=== PATIENT | male | born 1970 | race Caucasian/White ===

== ENCOUNTER → 2017-06-08 | Outpatient (CLI) | payer MEDICARE ==
[2016-05-03 15:14] VITALS: BP 146/90
[~2017-06-08] MED LIST: ACYC800T PO; HYDR-971 PO; PRED50TA PO
--- NOTE | 2017-06-08 16:33 | RAD ---
3 view right shoulder study History: Right shoulder pain for years. Findings: No acute fracture or dislocation or osteolytic process is seen. There is mild primary degenerative osteoarthritis and spurring of the AC joint. There is lateral downsloping of the acromial process. These findings may impinge the acromial humeral space. There are chronic cystic changes of the lateral aspect of the humeral head which may be secondary to chronic acromial humeral space impingement which may result in rotator cuff disease. IMPRESSION: No acute osseous abnormality is seen. See discussion above.
== END | disposition home or self-care (01) ==
LOC: RAD 11:48
PROVIDERS: ATTEND Physician Assistant
DX: M19.011 Primary osteoarthritis, right shoulder (principal); M85.611 Other cyst of bone, right shoulder
CPT/HCPCS: 73030

== ENCOUNTER → 2018-05-25 | Outpatient (CLI) | payer MEDICARE ==
[2016-05-03 15:14] VITALS: BP 146/90
--- NOTE | 2018-05-25 11:56 | RAD ---
Chest, 2 views, 05/25/2018: HISTORY: Preop evaluation for brain surgery The heart size is normal. No pulmonary infiltrate is seen. There is no evidence of pleural fluid. Moderate hypertrophic spurring is present in the spine. IMPRESSION: No acute cardiopulmonary abnormality is detected. Electronically signed by: Dhruv Zurita MD (05/25/2018 11:52 AM) [facility]
== END | disposition home or self-care (01) ==
LOC: PMG 10:13
PROVIDERS: ATTEND Physician Assistant
DX: Z01.818 Encounter for other preprocedural examination (principal)
CPT/HCPCS: 71046

== ENCOUNTER → 2021-03-31 | Outpatient (CLI) | payer MEDICARE ==
[2016-05-03 15:14] VITALS: BP 146/90
[~2021-03-31] MED LIST changes: -ACYC800T PO; +ACYC800T88 PO; +HYDR-3165 PO; -HYDR-971 PO
--- NOTE | 2021-03-31 18:18 | RAD ---
Exam: Right RIBS with PA chest INDICATION: Fell on his back, right posterior rib pain TECHNIQUE: Frontal view of chest with frontal and oblique views of the right ribs Comparisons: 05/25/2018 FINDINGS: The cardiomediastinal silhouette and pulmonary vessels are within normal limits. The lung and pleural spaces are clear. No displaced rib fractures. IMPRESSION: 1. No acute cardiopulmonary process. 2. No displaced rib fracture Electronically signed by: Bobbi Kelsey MD (03/31/2021 6:16 PM) [facility]
== END ==
LOC: PMG 17:36
PROVIDERS: ATTEND Nurse Practitioner Family
DX: R07.81 Pleurodynia (principal)
CPT/HCPCS: 71101

== ENCOUNTER → 2021-05-28 | Outpatient (CLI) | payer MEDICARE ==
[2016-05-03 15:14] VITALS: BP 146/90
--- NOTE | 2021-05-28 10:17 | RAD ---
EXAM: Chest, 2 views. HISTORY: Chest pain. Shortness of breath. COMPARISON: 05/25/2018 FINDINGS: 2 views of the chest are obtained. There is no infiltrate, pleural effusion or pneumothorax . The heart is normal in size. There are bilateral vagal nerve stimulator is an leads overlying the b ilateral thorax and neck. IMPRESSION: No acute pulmonary finding. Electronically signed by: Whit Guevara MD (05/28/2021 10:15 AM) [id number]
== END ==
LOC: RAD 09:57
PROVIDERS: ATTEND Physician Assistant
DX: R05.9 Cough, unspecified (principal); R06.00 Dyspnea, unspecified
CPT/HCPCS: 71046